=== PATIENT | male | born 1965 | race African-American/Black ===

== ENCOUNTER 2025-01-23 16:53 | Emergency (ER) | payer OTHER ==
[~2025-01-23] VITALS: Ht 177.8 cm; Wt 104.0 kg
[2025-01-23 16:56] VITALS: O2SAT 100
[2025-01-23] MEDS ORDERED: DICYCLOMINE 10 MG/5 ML ORAL SYR PO STA (17:05)
[2025-01-23] MEDS: MAGNESIUM/ALUMINUM HYDROXIDE/SIMETHICONE 30ML UDC PO STA (18:11)
[2025-01-23] MEDS: DICYCLOMINE HCL 10MG CAPSULE PO NR (18:12)
[2025-01-23] MEDS: KETOROLAC 30MG/ML VIAL IM ONE (18:12)
[2025-01-23] MEDS: METHYLPREDNISOLONE SOD SUCC 125MG/2ML (ACT-O-VIAL) IM ONE (18:12)
[2025-01-23] MEDS: ONDANSETRON 4MG ODT PO STA (18:12)
[2025-01-23 18:22] VITALS: TEMP 37.1
[2025-01-23] MEDS: GUAIFENESIN/DM 600MG/30MG ER TAB 12HR PO PRN (18:39)
[2025-01-23 18:41] LABS: HEMATOCRIT. 50.4 % (42.0-52.0); HEMOGLOBIN. 16.7 g/dL (14.0-18.0); MEAN CORPUSCULAR HEMOGLOBIN 31.3 pg (28.0-32.0); MEAN CORPUSCULAR HGB CONC 33.2 g/dL (31.0-37.0); MEAN CORPUSCULAR VOLUME 94.5 fL (80.0-94.0); MEAN PLATELET VOLUME 7.5 fl (7.4-10.4); PLATELET 241 x1000/uL (130-400); RED BLOOD CELL COUNT 5.33 mill/uL (4.7-6.1); RED CELL DISTRIBUTION WIDTH 13.4 % (11.6-14.6); WHITE BLOOD COUNT 10.1 x1000/uL (4.5-11.0)
[2025-01-23 18:42] LABS: DIFFERENTIAL COMMENT 1
[2025-01-23 18:52] LABS: CHLORIDE 99 mEq/L (98-107); POTASSIUM 3.6 mEq/L (3.5-5.1); SODIUM 136 mEq/L (136-145)
[2025-01-23 18:53] LABS: CARBON DIOXIDE 27 mEq/L (21-32)
[2025-01-23 18:54] LABS: CALCIUM 10.1 mg/dL (8.7-10.4)
[2025-01-23 18:58] LABS: GLUCOSE 100 mg/dL (70-105)
[2025-01-23 18:59] LABS: ETHANOL BLOOD < 10 mg/dL (<10); UREA NITROGEN BLOOD 13 mg/dL (9-23)
[2025-01-23 19:00] LABS: ALANINE AMINOTRANSFERASE 26 IU/L (10-49); ASPARTATE AMINOTRANSFERASE 26 IU/L (<34); PLATELET ESTIMATE NORMAL
[2025-01-23 19:01] LABS: BILIRUBIN DIRECT < 0.1 mg/dL (<=3.0); BILIRUBIN TOTAL 0.2 mg/dL (0.1-1.0)
[2025-01-23] MEDS ORDERED: P50 MT (21:56)
[2025-01-23 23:25] VITALS: BP 143/89; PULSE 68; RESP 16; O2SAT 99
== END 2025-01-23 23:51 | disposition home or self-care (01) ==
LOC: ER 16:53
DX: R10.9 Unspecified abdominal pain (principal); K52.9 Noninfective gastroenteritis and colitis, unspecified
CPT/HCPCS: 80076; 80048; 80320; 83605; 83690; 85025; 36415; 74176; 96372; 99285; Q0162; J1885; J2919; G0480